=== PATIENT | male | born 1980 | race Asian ===

== ENCOUNTER 2017-12-16 13:35 | Outpatient (CLI) | payer BC ==
--- NOTE | 2017-12-16 16:10 | NM ---
RADIONUCLIDE RENOGRAPHY: HISTORY: A 37-year-old male with right UPJ obstruction. RADIOPHARMACEUTICAL: 8.4 mCi Technetium 99m-MAG3 injected intravenously. DIURETIC: 14 mg IV Lasix given 15 minutes prior to the radiopharmaceutical. FINDINGS: Imaging is performed with a Mooney catheter in place in the urinary bladder. There is decreased flow to the right kidney compared to the left with slower tracer uptake. The diff erential function measures 45% on the left and 46% on the right. There is normal tracer excretion by the left kidney with a downsloping renogram curve. There is There is no significant tracer excretio n by the right kidney. IMPRESSION: High-grade right-sided urinary tract obstruction. POS: PREM
== END 2017-12-16 13:36 | disposition home or self-care (01) ==
LOC: NM 13:35
PROVIDERS: ATTEND Urology
DX: N13.5 Crossing vessel and stricture of ureter without hydronephrosis (principal)
CPT/HCPCS: 78708; A4641; A9562